=== PATIENT | male | born 1960 | race Caucasian/White ===

== ENCOUNTER → 2017-07-28 | Outpatient (CLI) | payer MEDICAID ==
--- NOTE | 2017-07-28 10:13 | RADIOLOGY REPORT PS360 ---
CLAVICLE-RT HISTORY: Follow-up fracture RT CLAVICLE FX ORDERING PHYSICIAN: KE PEACOCK MD PATIENT AGE: 57 years COMPARISON: 07/01/2016 FINDINGS: There is an old fracture involving the medial aspect of the clavicle with callus formation. There is mild inferior displacement of the lateral fracture fragment not significant change. The mid and distal aspect of the clavicle has an unremarkable appearance. 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 IMPRESSION: Healed medial right clavicular fracture
== END ==
LOC: RAD 08:57
DX: S42.009A Fracture of unspecified part of unspecified clavicle, initial encounter for closed fracture (principal)

== ENCOUNTER → 2017-08-09 | Outpatient (CLI) | payer MEDICAID ==
--- NOTE | 2017-08-09 10:49 | RADIOLOGY REPORT PS360 ---
CT EXT.UPPER-RT-W/O CONTRAST INDICATION: Follow-up clavicle fracture, evaluate for nonunion CLAVICLE FX ORDERING PHYSICIAN: KE PEACOCK MD PATIENT AGE: 57 years COMPARISON: 07/01/2016 radiograph TECHNIQUE: Axial images are obtained without contrast. Sagittal and coronal reformatted images are reviewed as well. FINDINGS: Comminuted fractures noted involving the medial aspect of the right clavicle. Multiple bony fragments are present at the fracture site. The main medial fracture fragment the head of the clavicle. No bony union apparent of the fragmented fracture fragments and the main medial fracture fragment with the body of the clavicle. There is mild inferior displacement of the distal fracture fragment by approximately 9 to 10 mm. There is mild widening of the joint space of the sternoclavicular joint on the right. The clavicular head appears slightly subluxed superiorly compared to the normal left side. The medial portion of the main component of the clavicle has a beveled contour. No soft tissue abnormalities apparent. Upper thoracic images show mild centrilobular and paraseptal emphysematous changes. 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 There is also some superior subluxation of the head of the right clavicle at the sternoclavicular joint.
== END ==
LOC: RAD 08:06
DX: S42.009A Fracture of unspecified part of unspecified clavicle, initial encounter for closed fracture (principal)